=== PATIENT | male | born 1980 | race Caucasian/White ===

== ENCOUNTER 2016-10-27 05:12 | Emergency (ER) | payer SELFPAY ==
--- NOTE | 2016-11-03 07:39 | ER ---
ADMIT: 10/27/2016 RM/LOC: ER [facility] MR#: [id number] [address] [id number] [address] [place] [id number] Emergency Room Report SEX: M AGE: 36 : 1980 DATE: 10/27/2016 ADDENDUM: A 36-year-old male, presents complaining of a headache. He did state it began fairly suddenly about 11 hours ago, it has been fairly constant since then. He does state he has a history of migraines, but this one feels worse than that. It is the same character of. He has no other neurologic symptoms. No fevers, chills, nausea, or vomiting. He does have photophobia. I did get a CT head, which shows nothing acute. He was given Toradol, Benadryl, and Reglan with improvement in his symptoms, but are not completely resolved. Towards the end of his stay, he was given a [place] and he was discharged home to follow up Dr. Denise if not improving and return to the ER for any concerning symptoms. DIAGNOSIS: Migraine. Aman Padilla MD/ sherly JOB #: [id number] CC: Aman Padilla MD, Attending Physician Fernando Denise MD, Family Physician
== END 2016-10-27 06:40 | disposition home or self-care (01) ==
LOC: ER 05:12
DX: G43.909 Migraine, unspecified, not intractable, without status migrainosus (principal); F17.210 Nicotine dependence, cigarettes, uncomplicated; Z98.890 Other specified postprocedural states

== ENCOUNTER 2017-04-28 20:56 | Emergency (ER) | payer SELFPAY ==
--- NOTE | 2017-04-30 13:34 | ER ---
ADMIT: 04/28/2017 RM/LOC: ER [facility] MR#: [id number] [address] [id number] [address] [place] [address] Emergency Room Report SEX: M AGE: 37 : 1980 DATE: 04/28/2017 CHIEF COMPLAINT: "Passed out." HISTORY OF PRESENT ILLNESS: A 37-year-old male, presents to the ED for evaluation after a syncopal episode at home. This was an unwitnessed event. Happened around 12:00 this afternoon. States he was lying down on the couch. He stood up to blow his nose, made it to the bathroom when he began feeling lightheaded and warm, his vision went white, and he fell to the ground. He states he awoke supine on the bathroom floor, feeling somewhat disoriented, confused, and warm. He was able to get back up to his bedroom. He laid down for a while. Subsequently, started feeling some pain in his left elbow and left shoulder. He did call his aunt, made her aware, she came to the house. Recommended he be evaluated in the ED. He primarily complains of left elbow and shoulder pain. Denies any headache or trauma to the head. No shortness of breath or chest pain. Prior to the event, he denied chest pain, palpitations, heart racing. Did complain of visual disturbances and feeling warm. He had been persistently confused after the event; however, he was able to drive himself here several hours after. Denies recent illnesses, fevers, chills, or diarrhea. PAST MEDICAL HISTORY: COPD. PAST SURGICAL HISTORY: Cholecystectomy and knee surgery. MEDICATIONS: 1. Albuterol. 2. Breo inhaler. ALLERGIES: JIMENEZ. SOCIAL HISTORY: Denies smoking drugs. Does admit to occasional alcohol use. COURSE IN THE EMERGENCY ROOM: The patient was seen and examined. GENERAL: Afebrile, nontoxic, in no acute distress. HEENT: Normocephalic and atraumatic. There is no overt trauma to the head. Pupils are reactive. Pharynx is nonerythematous. There is no dental or oral injury. NECK: Soft and supple. He has a full range of motion. No midline tenderness. CHEST: Clear to auscultation. No wheezes, rhonchi, or rales. HEART: Regular. No murmurs, gallops, or rubs. ABDOMEN: Soft. SKIN: Warm and dry. He is not diaphoretic. EXTREMITIES: He has some tenderness to palpation over the left olecranon. There is no deformity or crepitus. No ecchymosis. He also has some tenderness over the lateral shoulder. Again, full range of motion. No ecchymosis. NEUROLOGIC: He is alert and oriented. There are no signs of acute stroke. ADMIT: 04/28/2017 RM/LOC: [facility] MR#: [id number] [place] [place] [id number] [address] [place] [address] Emergency Room Report SEX: M AGE: 37 : 1980 Cognition is intact. Cranial nerves are grossly intact. He has a normal gait. Motor and sensation intact in extremities. DIAGNOSTIC DATA: EKG read by Dr. Courtney, shows normal sinus rhythm, rate 75, no ST abnormalities. Left elbow x-rays were obtained, no acute fractures. LABORATORY STUDIES: White count 12.5, hemoglobin 17, hematocrit 40, and platelets 452. Chemistries within normal limits. Orthostatic blood pressures were obtained lying 142/89, sitting 124/90, and standing 128/96. He did feel lightheaded upon sitting. He was given a liter of normal saline bolus in the department. He was also placed on a Holter monitor for 48 hours to follow up his primary care provider. IMPRESSION: 1. Syncope. 2. Orthostatic hypotension. 3. Chronic obstructive pulmonary disease. DISPOSITION: Discharged home to follow up Nikki Partida with the results of the Holter monitor. He is to increase his fluids. He is to modify his activity tomorrow. I recommended he not work. Continue to push fluids. Return with worsening signs or symptoms. Follow up with Nikki Partida. Discharged home in stable condition. VENITA Pierson / Silvestre Courtney MD / sherly JOB #: [id number] CC: Ricky Chandler MD, Attending Physician Nikki Partida APRN-[employer]K ATTENDANT, Family Physician
== END 2017-04-28 23:40 | disposition home or self-care (01) ==
LOC: ER 20:56
DX: I95.1 Orthostatic hypotension (principal); J44.9 Chronic obstructive pulmonary disease, unspecified; Z90.49 Acquired absence of other specified parts of digestive tract; Z79.899 Other long term (current) drug therapy; Z91.018 Allergy to other foods